=== PATIENT | female | born 1935 | race Caucasian/White ===

== ENCOUNTER 2017-10-11 11:42 | Emergency (ER) | payer MEDICARE ==
[2017-10-11] MEDS ORDERED: fentaNYL (PF) 50 MCG/ML 2 ML AMP IVP ONE (12:07)
--- NOTE | 2017-10-11 12:26 | ED ---
Fall HPI - General Chief Complaint: Fall Stated Complaint: Fall Time Seen by Provider: 10/11/17 11:52 Source: EMS Mode of arrival: EMS - History of Present Illness Initial Comments: Patient is an 82-year-old female who presents with a chief complaint of a fall. The patient states that she was at her home, with an aide, trying to get out of her wheelchair and she fell forward. Patient states that she remembers the entire event did not lose consciousness. The patient states that she landed on her right hand, and face. Currently, the patient is complaining of a headache, dizziness, and right wrist pain. There are no aggravating or alleviating factors. The patient currently does take warfarin. - Related Data Home Medications Medication Instructions Recorded Confirmed Acetaminophen [Tylenol] 650 mg PO Q4H PRN 10/16/15 10/16/15 Budesonide [Pulmicort] 2 ml INHALATION RT-BID 10/16/15 10/16/15 Clobetasol Propionate [Temovate] 1 applic TOPICAL BID PRN 10/16/15 10/16/15 DULoxetine HCL [Cymbalta] 20 mg PO DAILY 10/16/15 10/16/15 Furosemide [Lasix] 40 mg PO BID 10/16/15 10/16/15 Glucerna Shake 1 can PO TID 10/16/15 10/16/15 INSULIN LISPRO (humaLOG) [humaLOG] See Protocol SQ AC-TID PRN 10/16/15 10/16/15 Ipratropium-Albuterol Nebulize 3 ml INHALATION RT-Q6H 10/16/15 10/16/15 [Duoneb 0.5 mg-3 mg/3 ml Soln] Metoprolol Succinate (ER) [Toprol 50 mg PO DAILY 10/16/15 10/16/15 Xl] Nitroglycerin Sl Tabs [Nitrostat] 0.4 mg SUBLINGUAL Q5M PRN 10/16/15 10/16/15 Omeprazole [Omeprazole] 20 mg PO DAILY 10/16/15 10/16/15 Ondansetron [Zofran] 4 mg PO Q8HR PRN 10/16/15 10/16/15 Potassium Chloride [K-Tab ER] 20 meq PO DAILY 10/16/15 10/16/15 Sevelamer [Renvela] 800 mg PO AC-TID 10/16/15 10/16/15 Warfarin [Coumadin] 1 mg PO SUTUTHSA 10/16/15 10/16/15 Warfarin [Coumadin] 2 mg PO MOWEFR 10/16/15 10/16/15 amLODIPine BESYLATE [Norvasc] 10 mg PO DAILY 10/16/15 10/16/15 hydrALAZINE HCL [Apresoline] 100 mg PO TID 10/16/15 10/16/15 Previous Rx's Medication Instructions Recorded Isosorbide Mononitrate ER [Imdur] 30 mg PO DAILY tab.er.24h 07/12/15 Allergies Allergy/AdvReac Type Severity Reaction Status Date / Time codeine Allergy Rash/Hives Verified 10/16/15 11:01 metoprolol Allergy Unknown Verified 10/16/15 11:12 Penicillins Allergy Anaphylaxis Verified 10/16/15 11:01 Tetanus Vaccines and Toxoid Allergy Rash/Hives Verified 10/16/15 11:01 [Tetanus Vaccines & Toxoid] Review of Systems ROS Statement: Those systems with pertinent positive or pertinent negative responses have been documented in the HPI. ROS Other: All systems not noted in ROS Statement are negative. Neurological: Reports: headache Past Medical History Past Medical History: COPD, Diabetes Mellitus, Hyperlipidemia, Hypertension, Osteoarthritis (OA), Renal Disease, Vascular Disorder Additional Past Medical History / Comment(s): mon/sat/sat hemodialysis History of Any Multi-Drug Resistant Organisms: ESBL Date of last positivie culture/infection: 10/31/16 MDRO Source:: ESBL URINE E.COLI Past Surgical History: No Surgical Hx Reported Additional Past Surgical History / Comment(s): Ovine cyst removal cataracts carpal tunnel surgery left side. left AV fistula Past Anesthesia/Blood Transfusion Reactions: No Reported Reaction Past Psychological History: No Psychological Hx Reported Smoking Status: Former smoker Past Alcohol Use History: None Reported Past Drug Use History: None Reported General Exam Limitations: altered mental status General appearance: alert, in no apparent distress Head exam: Present: normocephalic, other (Patient has a contusion above the right eye, and a small abrasion above the right eye.) Eye exam: Present: normal appearance, PERRL, EOMI ENT exam: Present: normal exam, mucous membranes moist Neck exam: Absent: tenderness Respiratory exam: Present: normal lung sounds bilaterally. Absent: respiratory distress, wheezes, rales Cardiovascular Exam: Present: regular rate, normal rhythm, other (Patient has a dialysis catheter on her anterior right chest) GI/Abdominal exam: Present: soft. Absent: distended, tenderness Rectal exam: Present: deferred Extremities exam: Present: tenderness, joint swelling, other (Patient has swelling of the right ulnar wrist) Neurological exam: Present: alert, oriented X3 Psychiatric exam: Present: normal affect, normal mood Skin exam: Present: warm, dry, intact Course Vital Signs 10/11/17 10/11/17 11:45 14:29 Temperature 97.6 F Pulse Rate 76 69 Respiratory 18 20 Rate Blood Pressure 187/79 O2 Sat by Pulse 96 92 L Oximetry Medical Decision Making - Medical Decision Making Patient is an 82-year-old female who presents with a chief complaint of fall. On initial evaluation, vital signs are stable, patient is in no acute distress. She presents in a c-collar. Patient states that she hit her head, she has an abrasion and a contusion over the right eye. Patient admits to taking warfarin. She will be examining the CT head and neck, x-rays of the chest and pelvis, and an x-ray of the right hand and wrist. We'll be evaluated with labs and a PT/INR. Given patient's symptoms, she will likely be a candidate for observation of CT head is negative. 2:33 PM Patient's daughter now currently in the emergency department. Patient's daughter offers a very different history. She states that the patient was brought back to her living facility after dialysis, we'll to a room, and she had what is described as a syncopal episode, and fell forward. After the fall, the patient's daughter describes an episode of rhythmic shaking and foaming at the mouth that lasted 2 minutes. The patient does not otherwise have a diagnosed history of seizure disorder. W evaluation was brought and to include a syncopal workup. Initial CT of the head and neck not show any acute fractures or intracranial bleeding. I discussed the results with the patient and her family thus far, and given the further history provided by the patient' s daughter the patient will require transfer to a facility that has neurosurgery in-house. Though reluctant, the patient and family are agreeable after long discussion of the risks and benefits. 2:39 PM This case was discussed with Dr. Ba at [facility] who accepts transfer of this patient for consult neurosurgery. - Lab Data Result diagrams: 10/11/17 13:05 10/11/17 13:05 Lab Results 10/11/17 10/11/17 10/11/17 Range/Units 13:05 13:05 13:05 WBC 7.8 (3.8-10.6) k/uL RBC 4.29 (3.80-5.40) m/uL Hgb 12.6 (11.4-16.0) gm/dL Hct 37.8 (34.0-46.0) % MCV 88.2 (80.0-100.0) fL MCH 29.4 (25.0-35.0) pg MCHC 33.4 (31.0-37.0) g/dL RDW 14.7 (11.5-15.5) % Plt Count 264 (150-450) k/uL Neutrophils % 81 % Lymphocytes % 11 % Monocytes % 5 % Eosinophils % 2 % Basophils % 1 % Neutrophils # 6.3 (1.3-7.7) k/uL Lymphocytes # 0.9 L (1.0-4.8) k/uL Monocytes # 0.4 (0-1.0) k/uL Eosinophils # 0.2 (0-0.7) k/uL Basophils # 0.1 (0-0.2) k/uL PT 21.2 H (9.0-12.0) sec INR 2.4 H (<1.2) Sodium 137 (137-145) mmol/L Potassium 4.3 (3.5-5.1) mmol/L Chloride 94 L (98-107) mmol/L Carbon Dioxide 32 H (22-30) mmol/L Anion Gap 11 mmol/L BUN 15 (7-17) mg/dL Creatinine 2.36 H (0.52-1.04) mg/dL Est GFR (CKD-EPI)AfAm 21 (>60 ml/min/1.73 sqM) Est GFR (CKD-EPI)NonAf 19 (>60 ml/min/1.73 sqM) Glucose 144 H (74-99) mg/dL Calcium 9.3 (8.4-10.2) mg/dL CK-MB (CK-2) (0.0-2.4) ng/mL Troponin I (0.000-0.034) ng/mL NT-Pro-B Natriuret Pep pg/mL 10/11/17 10/11/17 Range/Units 13:05 13:05 WBC (3.8-10.6) k/uL RBC (3.80-5.40) m/uL Hgb (11.4-16.0) gm/dL Hct (34.0-46.0) % MCV (80.0-100.0) fL MCH (25.0-35.0) pg MCHC (31.0-37.0) g/dL RDW (11.5-15.5) % Plt Count (150-450) k/uL Neutrophils % % Lymphocytes % % Monocytes % % Eosinophils % % Basophils % % Neutrophils # (1.3-7.7) k/uL Lymphocytes # (1.0-4.8) k/uL Monocytes # (0-1.0) k/uL Eosinophils # (0-0.7) k/uL Basophils # (0-0.2) k/uL PT (9.0-12.0) sec INR (<1.2) Sodium (137-145) mmol/L Potassium (3.5-5.1) mmol/L Chloride (98-107) mmol/L Carbon Dioxide (22-30) mmol/L Anion Gap mmol/L BUN (7-17) mg/dL Creatinine (0.52-1.04) mg/dL Est GFR (CKD-EPI)AfAm (>60 ml/min/1.73 sqM) Est GFR (CKD-EPI)NonAf (>60 ml/min/1.73 sqM) Glucose (74-99) mg/dL Calcium (8.4-10.2) mg/dL CK-MB (CK-2) <0.2 (0.0-2.4) ng/mL Troponin I <0.012 (0.000-0.034) ng/mL NT-Pro-B Natriuret Pep 59837 pg/mL Disposition Clinical Impression: Syncope, Fall, Seizure Disposition: OTHER INSTITUTION NOT DEFINED Condition: Fair Referrals: None,Stated [REFERRING] - 1-2 days - Out of Hospital Transfer - Req. Specs Out of Hospital Transfer - Requested Specifics: Other Emergency Center
--- NOTE | 2017-10-11 13:34 | CT ---
EXAMINATION TYPE: CT facial bones wo con DATE OF EXAM: 10/11/2017 COMPARISON: NONE HISTORY: Fall today with Right sided supra-orbital injury CT DLP: 612 mGycm Automated exposure control for dose reduction was used. TECHNIQUE: CT scan of the sinuses is performed without contrast, axial images are obtained, coronal r eformatted images are also reviewed. FINDINGS: Katy bullosa noted bilaterally The large soft tissue hematoma overlying the right frontal bone and superior margin of the orbit. Osseous structures are intact. Intraorbital structures are intact. Visualized oropharynx and nasopharynx symmetric. Parotid glands have a normal appearance. There is facet arthropathy and degenerative disc disease of the visualized cervical spine. Nasal sept al deviation noted. IMPRESSION: Slight 1. Soft tissue tissue hematoma overlying the right frontal bone.
[2017-10-11 13:35] LABS: INR 2.4 (<1.2); Prothrombin Time 21.2 sec (9.0-12.0)
--- NOTE | 2017-10-11 13:42 | CT ---
EXAMINATION TYPE: CT brain heather [place] DATE OF EXAM: 10/11/2017 COMPARISON: NONE HISTORY: Fall today with Right sided supra-orbital injury CT DLP: 1567.1 mGycm Automated exposure control for dose reduction was used. TECHNIQUE: CT scan of the head and cervical spine are performed without contrast. FINDINGS: There is soft tissue hematoma overlying the right frontal bone moderate generalized degen erative change. Periventricular low attenuation compatible with remote microvascular ischemia. No mid line shift or mass effect. Calvarium intact. Intracranial atherosclerotic changes noted. Assessment spinal cord and spinal canal limited due to noncontrast technique and reduced resolution. At C3-C4 there is facet arthropathy. Uncovertebral joint hypertrophy noted with central disc bulging. At C4-C5 there is facet arthropathy much greater on the left uncovertebral joint hypertrophy noted. At C5-6 and C6-C7 there severe degenerative disc disease with posterior spondylosis. There is uncover tebral joint hypertrophy and facet arthropathy. Canal stenosis and severe bilateral foraminal encroac hment suspected. Recommend follow-up MRI. There is a 1 cm thyroid nodule on the right. Emphysematous changes and apical pleural thickening is n oted bilaterally. IMPRESSION: 1. There is no acute fracture or dislocation evident in the cervical spine. 2. No acute intracranial hemorrhage, mass effect, or midline shift is seen. 3 degenerative and nonspe cific white matter changes most typical remote microvascular ischemia 3. Right-sided thyroid nodule
[2017-10-11 13:44] LABS: Calcium 9.3 mg/dL (8.4-10.2); Potassium 4.3 mmol/L (3.5-5.1)
[2017-10-11 13:49] LABS: Basophils # (A) 0.1 k/uL (0-0.2); Basophils % (A) 1 %; Eosinophils # (A) 0.2 k/uL (0-0.7); Eosinophils % (A) 2 %; HCT 37.8 % (34.0-46.0); HGB 12.6 gm/dL (11.4-16.0); Lymphocytes # (A) 0.9 k/uL (1.0-4.8); Lymphocytes % (A) 11 %; MCH 29.4 pg (25.0-35.0); MCHC 33.4 g/dL (31.0-37.0); MCV 88.2 fL (80.0-100.0); Mean Platelet Volume 7.7; Monocytes # (A) 0.4 k/uL (0-1.0); Monocytes % (A) 5 %; Neutrophils # (A) 6.3 k/uL (1.3-7.7); Neutrophils % (A) 81 %; Platelet Count 264 k/uL (150-450); RBC 4.29 m/uL (3.80-5.40); RDW 14.7 % (11.5-15.5); WBC 7.8 k/uL (3.8-10.6)
[2017-10-11 14:12] LABS: Creatine Kinase MB <0.2 ng/mL (0.0-2.4); Troponin I <0.012 ng/mL (0.000-0.034)
--- NOTE | 2017-10-11 14:57 | XR ---
Right wrist HISTORY: Right-sided pain, fall 4 views of the right wrist correlated to right hand same date Bone mineralization is reduced which may limit sensitivity. Arthropathy is noted with remodeling of t he radiocarpal joint, hypertrophic change of the carpometacarpal joint of the first digit and scaphoi d trapezium joint with subchondral sclerosis. Alignment is maintained. Soft tissue swelling is suspec joe. Probable vascular calcifications noted incidentally. IMPRESSION: No acute fracture or dislocation evident, follow-up as indicated.
--- NOTE | 2017-10-11 14:58 | XR ---
EXAMINATION TYPE: XR hand complete RT DATE OF EXAM: 10/11/2017 CLINICAL HISTORY: Right-sided hand and wrist pain after a fall TECHNIQUE: Frontal, lateral and oblique images of the right hand and wrist are obtained. Scaphoid vi ew was also obtained. COMPARISON: None. FINDINGS: There is subtle probable fracture deformity of the mid pole of the scaphoid, which appears acute but overall is age indeterminate due to underlying osseous demineralization. Degenerative barcenas es of the distal interphalangeal joints, lesser degree proximal interphalangeal joints, and first car pal metacarpal joint are noted distribution of osteoarthritis. No carpocarpal joint space widening. N o additional acute fracture is seen. The overlying soft tissue appears unremarkable. The rest maintai ns normal alignment. IMPRESSION: Probable fracture deformity of the mid pole of the scaphoid appearing acute although not reproduced on the scaphoid view. Correlate with point tenderness. Clinically if this is equivocal nuc lear medicine bone scan or MR to evaluate for bone marrow edema could be performed.
--- NOTE | 2017-10-11 14:59 | XR ---
EXAMINATION TYPE: XR chest 1V DATE OF EXAM: 10/11/2017 COMPARISON: 10/16/2015 HISTORY: Right-sided chest pain after a fall. TECHNIQUE: Single frontal view of the chest is obtained. FINDINGS: There is mild diffuse pulmonary vascular congestion and cephalization with right-sided ba l lumen hemodialysis catheter terminating in the right atrium. No sizable pneumothorax. Trace pleural effusions blunt the costophrenic angles. No displaced fracture is identified. There is diffuse osseo us demineralization. IMPRESSION: Mild diffuse interstitial edema and pulmonary vascular congestion likely secondary to no ncardiogenic fluid overload in this patient with a dual lumen hemodialysis catheter.
--- NOTE | 2017-10-11 15:00 | XR ---
EXAMINATION TYPE: XR pelvis AP view DATE OF EXAM: 10/11/2017 CLINICAL HISTORY: Right-sided pain after a fall TECHNIQUE: A single AP view of the pelvis is obtained. COMPARISON: None. FINDINGS: There is no acute fracture/dislocation evident in the pelvis. Mild femoral acetabular arth ropathy is seen bilaterally with mild sacroiliac joint sclerosis. Atherosclerosis is seen of the comm on iliac arteries and their branches, moderate in degree. The overlying soft tissue appears unremark able. IMPRESSION: There is no acute fracture or dislocation in the pelvis.
[2017-10-11] MEDS ORDERED: hydrALAZINE HCL 25 MG TAB PO STA ×2 (15:21→15:22)
[2017-10-11] MEDS ORDERED: LISINOPRIL 10 MG TAB PO STA ×2 (15:21→15:22)
[2017-10-11 15:25] VITALS: BP 206/79; PULSE 70; RESP 18; TEMP 97.5
== END 2017-10-11 16:06 | disposition other institution (70) ==
LOC: EC 11:42
DX: S00.11XA Contusion of right eyelid and periocular area, initial encounter (principal); M25.431 Effusion, right wrist; R56.9 Unspecified convulsions; R55 Syncope and collapse; R42 Dizziness and giddiness; J44.9 Chronic obstructive pulmonary disease, unspecified; E78.5 Hyperlipidemia, unspecified; E11.22 Type 2 diabetes mellitus with diabetic chronic kidney disease; Z99.2 Dependence on renal dialysis; I10 Essential (primary) hypertension; M19.90 Unspecified osteoarthritis, unspecified site; Z87.891 Personal history of nicotine dependence; Z79.01 Long term (current) use of anticoagulants; Z79.4 Long term (current) use of insulin; Z79.51 Long term (current) use of inhaled steroids; Z79.899 Other long term (current) drug therapy; Z88.0 Allergy status to penicillin; Z88.5 Allergy status to narcotic agent; Z88.7 Allergy status to serum and vaccine; Z88.8 Allergy status to other drugs, medicaments and biological substances; W05.0XXA Fall from non-moving wheelchair, initial encounter; Y92.009 Unspecified place in unspecified non-institutional (private) residence as the place of occurrence of the external cause
CPT/HCPCS: 36415; 93005; 83880; 80048; 82553; 84484; 85025; 85610; 72170; 73110; 73130; 71045; 72125; 70486; 70450; 99285; 96374; J3010

== ENCOUNTER 2017-12-01 08:55 | Inpatient (IN) | payer MEDICARE ==
--- NOTE | 2017-12-01 09:05 | ED ---
SOB HPI - General Stated Complaint: hemoptysis Time Seen by Provider: 12/01/17 08:55 Source: patient, EMS, RN notes reviewed, old records reviewed Mode of arrival: EMS - History of Present Illness Initial Comments: This 82-year-old female with a history of renal failure who is on dialysis Saturday who did have dialysis 2 days ago who apparently has been coughing all night and coughing up dark colored blood throughout the night. She was transported here by EMS for evaluation she is reported have a low pulse ox. Markedly diminished breath sounds per paramedics. The patient did receive a nebulizer treatment in route. Patient states it did help her breathing somewhat. She also complains some right-sided flank pain no fevers reported no per paramedics she did feel warm. No other complaints or modifying factors at this time. Patient is on Coumadin for an unknown reason. MD Complaint: shortness of breath, cough - Related Data Home Medications Medication Instructions Recorded Confirmed Acetaminophen [Tylenol] 650 mg PO Q4H PRN 10/16/15 12/01/17 Budesonide [Pulmicort] 2 ml INHALATION RT-BID 10/16/15 12/01/17 Clobetasol Propionate [Temovate] 1 applic TOPICAL BID PRN 10/16/15 12/01/17 DULoxetine HCL [Cymbalta] 20 mg PO DAILY 10/16/15 12/01/17 Furosemide [Lasix] 40 mg PO BID 10/16/15 12/01/17 Glucerna Shake 1 can PO TID 10/16/15 12/01/17 INSULIN LISPRO (humaLOG) [humaLOG] See Protocol SQ AC-TID PRN 10/16/15 12/01/17 Ipratropium-Albuterol Nebulize 3 ml INHALATION RT-Q6H 10/16/15 12/01/17 [Duoneb 0.5 mg-3 mg/3 ml Soln] Metoprolol Succinate (ER) [Toprol 50 mg PO DAILY 10/16/15 12/01/17 Xl] Nitroglycerin Sl Tabs [Nitrostat] 0.4 mg SUBLINGUAL Q5M PRN 10/16/15 12/01/17 Omeprazole [Omeprazole] 20 mg PO DAILY 10/16/15 12/01/17 Ondansetron [Zofran] 4 mg PO Q8HR PRN 10/16/15 12/01/17 Potassium Chloride [K-Tab ER] 20 meq PO DAILY 10/16/15 12/01/17 Sevelamer [Renvela] 800 mg PO AC-TID 10/16/15 12/01/17 Warfarin [Coumadin] 1 mg PO SUTUTHSA 10/16/15 12/01/17 Warfarin [Coumadin] 2 mg PO MOWEFR 10/16/15 12/01/17 amLODIPine BESYLATE [Norvasc] 10 mg PO DAILY 10/16/15 12/01/17 hydrALAZINE HCL [Apresoline] 100 mg PO TID 10/16/15 12/01/17 Previous Rx's Medication Instructions Recorded Isosorbide Mononitrate ER [Imdur] 30 mg PO DAILY tab.er.24h 07/12/15 Allergies Allergy/AdvReac Type Severity Reaction Status Date / Time codeine Allergy Rash/Hives Verified 10/16/15 11:01 metoprolol Allergy Unknown Verified 10/16/15 11:12 Penicillins Allergy Anaphylaxis Verified 10/16/15 11:01 Tetanus Vaccines and Toxoid Allergy Rash/Hives Verified 10/16/15 11:01 [Tetanus Vaccines & Toxoid] Review of Systems ROS Statement: Those systems with pertinent positive or pertinent negative responses have been documented in the HPI. ROS Other: All systems not noted in ROS Statement are negative. Past Medical History Past Medical History: COPD, Diabetes Mellitus, Hyperlipidemia, Hypertension, Osteoarthritis (OA), Renal Disease, Vascular Disorder Additional Past Medical History / Comment(s): sat/sat/sat hemodialysis History of Any Multi-Drug Resistant Organisms: ESBL Date of last positivie culture/infection: 10/31/16 MDRO Source:: ESBL URINE E.COLI Past Surgical History: No Surgical Hx Reported Additional Past Surgical History / Comment(s): Ovine cyst removal cataracts carpal tunnel surgery left side. left AV fistula Past Anesthesia/Blood Transfusion Reactions: No Reported Reaction Past Psychological History: No Psychological Hx Reported Smoking Status: Former smoker Past Alcohol Use History: None Reported Past Drug Use History: None Reported General Exam - General Exam Comments Initial Comments: This is a well-developed well-nourished awake alert oriented 3 female General appearance: alert, anxious Head exam: Present: atraumatic, normocephalic, normal inspection Eye exam: Present: normal appearance, PERRL, EOMI. Absent: scleral icterus, conjunctival injection, periorbital swelling ENT exam: Present: normal exam, mucous membranes moist Neck exam: Present: normal inspection. Absent: tenderness, meningismus, lymphadenopathy Respiratory exam: Present: rales, accessory muscle use, decreased breath sounds Cardiovascular Exam: Present: tachycardia GI/Abdominal exam: Present: soft, normal bowel sounds. Absent: distended, tenderness, guarding, rebound, rigid Extremities exam: Present: normal inspection, full ROM, normal capillary refill , other (Right arm fistula appears be functional). Absent: tenderness, pedal edema, joint swelling, calf tenderness Back exam: Present: normal inspection Neurological exam: Present: alert, oriented X3, CN II-XII intact Psychiatric exam: Present: normal affect, normal mood Skin exam: Present: warm, dry, intact, normal color. Absent: rash Course Vital Signs 12/01/17 12/01/17 12/01/17 09:00 11:13 12:07 Temperature 97.9 F Pulse Rate 76 78 76 Respiratory 26 H 16 20 Rate Blood Pressure 179/73 161/64 O2 Sat by Pulse 99 93 L 100 Oximetry - Reevaluation(s) Reevaluation #1: 12/01/17 13:02 Reexamination the patient earlier revealed no change in her status. Medical Decision Making - Lab Data Result diagrams: 12/01/17 09:15 12/01/17 09:15 Lab Results 12/01/17 12/01/17 12/01/17 Range/Units 09:15 09:15 09:15 WBC (3.8-10.6) k/uL RBC (3.80-5.40) m/uL Hgb (11.4-16.0) gm/dL Hct (34.0-46.0) % MCV (80.0-100.0) fL MCH (25.0-35.0) pg MCHC (31.0-37.0) g/dL RDW (11.5-15.5) % Plt Count (150-450) k/uL Neutrophils % % Lymphocytes % % Monocytes % % Eosinophils % % Basophils % % Neutrophils # (1.3-7.7) k/uL Lymphocytes # (1.0-4.8) k/uL Monocytes # (0-1.0) k/uL Eosinophils # (0-0.7) k/uL Basophils # (0-0.2) k/uL Hypochromasia Poikilocytosis PT 26.9 H (9.0-12.0) sec INR 3.0 H (<1.2) APTT 37.1 H (22.0-30.0) sec Sodium (137-145) mmol/L Potassium (3.5-5.1) mmol/L Chloride (98-107) mmol/L Carbon Dioxide (22-30) mmol/L Anion Gap mmol/L BUN (7-17) mg/dL Creatinine (0.52-1.04) mg/dL Est GFR (CKD-EPI)AfAm (>60 ml/min/1.73 sqM) Est GFR (CKD-EPI)NonAf (>60 ml/min/1.73 sqM) Glucose (74-99) mg/dL Calcium (8.4-10.2) mg/dL Magnesium (1.6-2.3) mg/dL Total Bilirubin (0.2-1.3) mg/dL AST (14-36) U/L ALT (9-52) U/L Alkaline Phosphatase (38-126) U/L Total Creatine Kinase 32 (30-135) U/L CK-MB (CK-2) 0.5 (0.0-2.4) ng/mL CK-MB (CK-2) Rel Index 1.6 NT-Pro-B Natriuret Pep 53426 pg/mL Total Protein (6.3-8.2) g/dL Albumin (3.5-5.0) g/dL 12/01/17 12/01/17 Range/Units 09:15 09:15 WBC 9.0 (3.8-10.6) k/uL RBC 2.86 L (3.80-5.40) m/uL Hgb 8.0 L (11.4-16.0) gm/dL Hct 24.7 L (34.0-46.0) % MCV 86.4 (80.0-100.0) fL MCH 27.9 (25.0-35.0) pg MCHC 32.3 (31.0-37.0) g/dL RDW 15.1 (11.5-15.5) % Plt Count 321 (150-450) k/uL Neutrophils % 75 % Lymphocytes % 16 % Monocytes % 5 % Eosinophils % 3 % Basophils % 0 % Neutrophils # 6.7 (1.3-7.7) k/uL Lymphocytes # 1.5 (1.0-4.8) k/uL Monocytes # 0.4 (0-1.0) k/uL Eosinophils # 0.3 (0-0.7) k/uL Basophils # 0.0 (0-0.2) k/uL Hypochromasia Slight Poikilocytosis Slight PT (9.0-12.0) sec INR (<1.2) APTT (22.0-30.0) sec Sodium 143 (137-145) mmol/L Potassium 4.1 (3.5-5.1) mmol/L Chloride 101 (98-107) mmol/L Carbon Dioxide 28 (22-30) mmol/L Anion Gap 14 mmol/L BUN 30 H (7-17) mg/dL Creatinine 5.62 H* (0.52-1.04) mg/dL Est GFR (CKD-EPI)AfAm 7 (>60 ml/min/1.73 sqM) Est GFR (CKD-EPI)NonAf 6 (>60 ml/min/1.73 sqM) Glucose 109 H (74-99) mg/dL Calcium 8.2 L (8.4-10.2) mg/dL Magnesium 2.2 (1.6-2.3) mg/dL Total Bilirubin 0.3 (0.2-1.3) mg/dL AST 10 L (14-36) U/L ALT 14 (9-52) U/L Alkaline Phosphatase 88 (38-126) U/L Total Creatine Kinase (30-135) U/L CK-MB (CK-2) (0.0-2.4) ng/mL CK-MB (CK-2) Rel Index NT-Pro-B Natriuret Pep pg/mL Total Protein 5.4 L (6.3-8.2) g/dL Albumin 2.9 L (3.5-5.0) g/dL - EKG Data -: EKG Interpreted by De EKG shows normal: sinus rhythm (Sinus rhythm rate of 80 MN interval 1:30 QRS duration 118 QT since QTC 462/532 a bundle-branch block pattern no acute ST-T wave changes.) - Radiology Data Radiology results: report reviewed (I did review the imaging and report evidence of CHF.), image reviewed Critical Care Time Critical Care Time: Yes Critical Care Time: 31 minutes of critical care time which includes initial presentation with history physical labs x-rays also discussed with paramedics and monitoring the EMS run. Discussion with family members regarding findings discussed with the patient discussed with the admitting physician admission orders and documentation the above also contacting the consumer insights specialist. Disposition Clinical Impression: Congestive heart failure (CHF), Chronic renal failure syndrome Disposition: ADMITTED IP TO THIS [facility] Condition: Stable Referrals: Merritt Treviño DO [Primary Care Provider] - 1-2 days
[2017-12-01 09:24] LABS: Basophils % (A) 0 %; Eosinophils # (A) 0.3 k/uL (0-0.7); Eosinophils % (A) 3 %; HCT 24.7 % (34.0-46.0); Hypochromasia Slight; Lymphocytes # (A) 1.5 k/uL (1.0-4.8); Lymphocytes % (A) 16 %; MCH 27.9 pg (25.0-35.0); MCHC 32.3 g/dL (31.0-37.0); MCV 86.4 fL (80.0-100.0); Mean Platelet Volume 8.4; Monocytes # (A) 0.4 k/uL (0-1.0); Monocytes % (A) 5 %; Neutrophils # (A) 6.7 k/uL (1.3-7.7); Neutrophils % (A) 75 %; Platelet Count 321 k/uL (150-450); Poikilocytosis Slight; RBC 2.86 m/uL (3.80-5.40); RDW 15.1 % (11.5-15.5)
[2017-12-01 09:32] LABS: Partial Thromboplastin Time 37.1 sec (22.0-30.0); Prothrombin Time 26.9 sec (9.0-12.0)
[2017-12-01 09:33] LABS: Albumin 2.9 g/dL (3.5-5.0); Calcium 8.2 mg/dL (8.4-10.2); Magnesium 2.2 mg/dL (1.6-2.3); Potassium 4.1 mmol/L (3.5-5.1); Total Bilirubin 0.3 mg/dL (0.2-1.3); Total Protein 5.4 g/dL (6.3-8.2)
[2017-12-01 09:53] LABS: Creatine Kinase MB 0.5 ng/mL (0.0-2.4)
--- NOTE | 2017-12-01 10:10 | XR ---
EXAMINATION TYPE: XR chest 2V DATE OF EXAM: 12/01/2017 HISTORY: cough. REFERENCE: Previous study dated 10/11/2017. FINDINGS: There is a large-bore, double-lumen catheter in place via a right internal jugular approach . Its tip is in the right atrium. Heart size upper limits of normal. There is vascular congestion and pulmonary edema. There are small, bilateral effusions. IMPRESSION: WORSENING CHANGES OF CONGESTIVE HEART FAILURE.
[2017-12-01] MEDS ORDERED: ONDANSETRON 4 MG TAB PO PRN (13:13)
[2017-12-01] MEDS ORDERED: NITROGLYCERIN SL TABS 0.4 MG TAB SUBLINGUAL PRN (13:13)
[2017-12-01] MEDS ORDERED: CLOBETASOL PROP 0.05% CR 15GM TOPICAL PRN (13:13)
[2017-12-01] MEDS ORDERED: ACETAMINOPHEN TAB 325 MG TAB PO PRN (13:13)
[2017-12-01] MEDS ORDERED: FUROSEMIDE 10 MG/ML 4 ML VIAL IV STA (13:16)
[2017-12-01] MEDS: IPRATROPIUM-ALBUTEROL 3 ML NEB INHALATION SCH ×2 (13:29→20:11)
[2017-12-01] MEDS ORDERED: NON-FORMULARY DRUG (Glucerna Shake 1 CAN) PO SCH (16:00)
[2017-12-01] MEDS ORDERED: hydrALAZINE HCL 50 MG TAB PO SCH (16:00)
[2017-12-01 17:02] LABS: Glucose,Whole Blood 123 mg/dL (75-99)
[2017-12-01] MEDS: SEVELAMER 800 MG TAB PO SCH (17:42)
[2017-12-01] MEDS ORDERED: WARFARIN 1 MG TAB PO SCH (18:00)
--- NOTE | 2017-12-01 18:25 | P.HPIM ---
History of Present Illness 82-year-old female with a history of renal failure who is on dialysis Saturday who did have dialysis 2 days ago who apparently has been coughing all night and coughing up dark colored blood throughout the night. She was transported here by EMS for evaluation she is reported have a low pulse ox. Markedly diminished breath sounds per paramedics. The patient did receive a nebulizer treatment in route. Patient states it did help her breathing somewhat. She also complains some right-sided flank pain no fevers reported no per paramedics she did feel warm. No other complaints or modifying factors at this time. Patient is on Coumadin for an unknown reason. Patient's INR is 3 and patient denied any symptoms of fever chills nausea vomiting patient does have some shortness of breath does use 2 L of oxygen at the alf. Patient does have a pulmonary edema on the chest x-ray. Patient does urinate. Patient was started on IV Lasix nephrology was consulted. We'll hold off Coumadin today and aspirin today can be resumed tomorrow. Patient is on Coumadin for atrial fibrillation. Patient appears to have some chronic diastolic dysfunction as well along with the renal dysfunction leading to pulmonary edema area patient is normally to person assist at alf Review of Systems REVIEW OF SYSTEMS: CONSTITUTIONAL: No fever, no malaise, no fatigue. HEENT: No recent visual problems or hearing problems. Denied any sore throat. CARDIOVASCULAR: No chest pain, orthopnea, PND, no palpitations, no syncope. PULMONARY: As mentioned in HPI GASTROINTESTINAL: No diarrhea, no nausea, no vomiting, no abdominal pain. Normoactive bowel sounds. NEUROLOGICAL: No headaches, no weakness, no numbness. HEMATOLOGICAL: Denies any bleeding or petechiae. GENITOURINARY: Denies any burning micturition, frequency, or urgency. MUSCULOSKELETAL/RHEUMATOLOGICAL: Denies any joint pain, swelling, or any muscle pain. ENDOCRINE: Denies any polyuria or polydipsia. The rest of the 14-point review of systems is negative. Past Medical History Past Medical History: COPD, Diabetes Mellitus, Hyperlipidemia, Hypertension, Osteoarthritis (OA), Renal Disease, Vascular Disorder Additional Past Medical History / Comment(s): sat/sat/sat hemodialysis History of Any Multi-Drug Resistant Organisms: ESBL Date of last positivie culture/infection: 11/15/17 MDRO Source:: ESBL URINE E.COLI Past Surgical History: No Surgical Hx Reported Additional Past Surgical History / Comment(s): Ovine cyst removal cataracts carpal tunnel surgery left side. left AV fistula Past Anesthesia/Blood Transfusion Reactions: No Reported Reaction Past Psychological History: No Psychological Hx Reported Smoking Status: Former smoker Past Alcohol Use History: None Reported Past Drug Use History: None Reported - Past Family History Sister(s) Family Medical History: Diabetes Mellitus, Hyperlipidemia, Hypertension Daughter(s) Family Medical History: Asthma, COPD Additional Family Medical History / Comment(s): Lupus Medications and Allergies Home Medications Medication Instructions Recorded Confirmed Type Acetaminophen [Tylenol] 650 mg PO Q6H PRN 10/16/15 12/01/17 History INSULIN LISPRO (humaLOG) [humaLOG] See Protocol SQ HS PRN 10/16/15 12/01/17 History Ipratropium-Albuterol Nebulize 3 ml INHALATION RT-Q6H 10/16/15 12/01/17 History [Duoneb 0.5 mg-3 mg/3 ml Soln] Nitroglycerin Sl Tabs [Nitrostat] 0.4 mg SUBLINGUAL Q5M PRN 10/16/15 12/01/17 History Omeprazole [Omeprazole] 20 mg PO DAILY 10/16/15 12/01/17 History Ondansetron [Zofran] 4 mg PO Q8HR PRN 10/16/15 12/01/17 History Sevelamer [Renvela] 800 mg PO AC-TID 10/16/15 12/01/17 History Aspirin 81 mg PO DAILY 12/01/17 12/01/17 History Atorvastatin [Lipitor] 20 mg PO HS 12/01/17 12/01/17 History Budesonide [Pulmicort Flexhaler] 2 puff INHALATION RT-BID 12/01/17 12/01/17 History Ferrous Sulfate [Feosol] 325 mg PO DAILY 12/01/17 12/01/17 History INSULIN LISPRO (humaLOG) [humaLOG] See Protocol SQ AC-TID PRN 12/01/17 12/01/17 History Lisinopril [Zestril] 20 mg PO DAILY 12/01/17 12/01/17 History Loratadine [Claritin] 10 mg PO DAILY 12/01/17 12/01/17 History Sertraline [Zoloft] 25 mg PO DAILY 12/01/17 12/01/17 History Warfarin Sodium [Coumadin] 4 mg PO WETH 12/01/17 12/01/17 History Warfarin [Coumadin] 2.5 mg PO SUMOTUFRSA 12/01/17 12/01/17 History hydrALAZINE HCL [Apresoline] 25 mg PO Q8HR 12/01/17 12/01/17 History levETIRAcetam 1,000 mg PO Q12HR 12/01/17 12/01/17 History levETIRAcetam [Keppra] 500 mg PO MOWEFR 12/01/17 12/01/17 History Allergies Allergy/AdvReac Type Severity Reaction Status Date / Time codeine Allergy Rash/Hives Verified 10/16/15 11:01 metoprolol Allergy Unknown Verified 10/16/15 11:12 Penicillins Allergy Anaphylaxis Verified 10/16/15 11:01 pneumococcal vaccine Allergy Unknown Verified 12/01/17 14:01 Tetanus Vaccines and Toxoid Allergy Rash/Hives Verified 10/16/15 11:01 [Tetanus Vaccines & Toxoid] Physical Exam Vitals: Vital Signs Temp Pulse Pulse Resp BP BP Pulse Ox 12/01/17 14:11 97.2 F L 75 18 189/74 98 12/01/17 14:00 98.1 F 88 17 164/72 97 12/01/17 13:39 73 16 12/01/17 13:32 74 16 12/01/17 12:07 76 20 161/64 100 12/01/17 11:13 78 16 93 L 12/01/17 09:00 97.9 F 76 26 H 179/73 99 Intake and Output 12/01/17 12/01/17 12/01/17 06:59 14:59 22:59 Other: Voiding Method Diaper # Voids 1 # Bowel Movements 1 Weight 72 kg PHYSICAL EXAMINATION: GENERAL: The patient is alert and oriented x3, not in any acute distress. Well developed, well nourished. HEENT: Pupils are round and equally reacting to light. EOMI. No scleral icterus. No conjunctival pallor. Normocephalic, atraumatic. No pharyngeal erythema. No thyromegaly. CARDIOVASCULAR: S1 and S2 present. No murmurs, rubs, or gallops. PULMONARY: Patient does have bilateral crackles ABDOMEN: Soft, nontender, nondistended, normoactive bowel sounds. No palpable organomegaly. MUSCULOSKELETAL: No joint swelling or deformity. EXTREMITIES: No cyanosis, clubbing, or pedal edema. NEUROLOGICAL: Gross neurological examination did not reveal any focal deficits. SKIN: No rashes. Results CBC & Chem 7: 12/01/17 09:15 12/01/17 09:15 Labs: Abnormal Lab Results - Last 24 Hours (Table) 12/01/17 12/01/17 12/01/17 Range/Units 09:15 09:15 09:15 RBC 2.86 L (3.80-5.40) m/uL Hgb 8.0 L (11.4-16.0) gm/dL Hct 24.7 L (34.0-46.0) % PT 26.9 H (9.0-12.0) sec INR 3.0 H (<1.2) APTT 37.1 H (22.0-30.0) sec BUN 30 H (7-17) mg/dL Creatinine 5.62 H* (0.52-1.04) mg/dL Glucose 109 H (74-99) mg/dL POC Glucose (mg/dL) (75-99) mg/dL Calcium 8.2 L (8.4-10.2) mg/dL AST 10 L (14-36) U/L Total Protein 5.4 L (6.3-8.2) g/dL Albumin 2.9 L (3.5-5.0) g/dL 12/01/17 Range/Units 16:38 RBC (3.80-5.40) m/uL Hgb (11.4-16.0) gm/dL Hct (34.0-46.0) % PT (9.0-12.0) sec INR (<1.2) APTT (22.0-30.0) sec BUN (7-17) mg/dL Creatinine (0.52-1.04) mg/dL Glucose (74-99) mg/dL POC Glucose (mg/dL) 123 H (75-99) mg/dL Calcium (8.4-10.2) mg/dL AST (14-36) U/L Total Protein (6.3-8.2) g/dL Albumin (3.5-5.0) g/dL Thrombosis Risk Factor Assmnt - Choose All That Apply Any of the Below Risk Factors Present?: Yes Each Factor Represents 1 point: Abnormal pulmonary function (COPD), Heart failure (<1month), Obesity (BMI >25) Each Risk Factor Represents 3 Points: Age 75 years or older Thrombosis Risk Factor Assessment Total Risk Factor Score: 6 Thrombosis Risk Factor Assessment Level: High Risk Assessment and Plan Plan: -Hemoptysis: Probably secondary to elevated INR and coughing secondary to pulmonary edema. Coumadin will be held today aspirin will be held today can be resumed tomorrow patient's INR is around 3 -Pulmonary edema: Secondary to chronic diastolic dysfunction with acute exacerbation along with the renal dysfunction nephrology was consulted patient may receive hemodialysis today patient will be started on 80 mg of IV Lasix twice a day and the patient's present creatinine is around 5. Patient does urinate at home. -End-stage renal disease, hemodialysis dependent -metabolic bone disease patient will be resumed on phosphate binders -Hypertension next and have an chronic atrial flutter ablation presently rate controlled -Type 2 diabetes mellitus patient is on sliding scale insulin which will be continued -hyperlipidemia -Diabetic nephropathy -Chronic and generalized deconditioning Hyponatremia chronic kidney disease patient is on iron supplementation and will be continued along with the erythropoietin
[2017-12-01] MEDS ORDERED: BUDESONIDE 1 MG/2 ML NEBU INHALATION SCH (20:00)
[2017-12-01] MEDS: BUDESONIDE 1 MG/2 ML NEBU INHALATION SCH (20:11)
[2017-12-01 20:48] LABS: Glucose,Whole Blood 104 mg/dL (75-99)
[2017-12-01] MEDS ORDERED: FUROSEMIDE 40 MG TAB PO SCH (21:00)
[2017-12-01] MEDS ORDERED: FUROSEMIDE 10 MG/ML 10 ML VIAL IV SCH (21:00)
[2017-12-01] MEDS ORDERED: FUROSEMIDE 10 MG/ML 4 ML VIAL IV SCH (21:00)
[2017-12-01] MEDS ORDERED: IPRATROPIUM-ALBUTEROL 3 ML NEB INHALATION PRN (21:19)
[2017-12-01] MEDS: INSULIN ASPART 100 UNIT/ML 1 ML 10 ML VIAL SQ SCH (22:22)
[2017-12-01] MEDS: ATORVASTATIN 20 MG TAB PO SCH (22:26)
[2017-12-01] MEDS: levETIRAcetam 500 MG TAB PO SCH (22:26)
[2017-12-02] MEDS: hydrALAZINE HCL 25 MG TAB PO SCH ×5 (00:02→23:30)
[2017-12-02 06:10] LABS: Glucose,Whole Blood 96 mg/dL (75-99)
[2017-12-02 06:19] LABS: HCT 26.7 % (34.0-46.0); HGB 8.2 gm/dL (11.4-16.0); Hypochromasia Moderate; MCH 27.5 pg (25.0-35.0); MCHC 30.8 g/dL (31.0-37.0); MCV 89.3 fL (80.0-100.0); Mean Platelet Volume 8.1; Platelet Count 338 k/uL (150-450); Poikilocytosis Slight; RBC 2.99 m/uL (3.80-5.40); RDW 15.3 % (11.5-15.5); WBC 8.1 k/uL (3.8-10.6)
[2017-12-02 06:27] LABS: INR 2.5 (<1.2); Prothrombin Time 22.6 sec (9.0-12.0)
[2017-12-02 06:40] LABS: Potassium 4.4 mmol/L (3.5-5.1)
[2017-12-02] MEDS: INSULIN ASPART 100 UNIT/ML 1 ML 10 ML VIAL SQ SCH ×4 (06:41→21:03)
[2017-12-02] MEDS: PANTOPRAZOLE 40 MG TABLET PO SCH (06:42)
[2017-12-02] MEDS: SEVELAMER 800 MG TAB PO SCH ×3 (06:42→17:28)
[2017-12-02] MEDS: IPRATROPIUM-ALBUTEROL 3 ML NEB INHALATION SCH ×4 (08:45→19:55)
[2017-12-02] MEDS: BUDESONIDE 1 MG/2 ML NEBU INHALATION SCH ×2 (08:46→19:54)
[2017-12-02] MEDS ORDERED: DARBEPOETIN ALFA 40 MCG/0.4 ML SYRINGE SQ SCH (09:00)
--- NOTE | 2017-12-02 09:14 | P.NPCON ---
History of Present Illness - Reason for Consult end stage renal disease - History of Present Illness Reason for consultation: End-stage renal disease History of present illness: Patient is a 82-year-old female seen in consultation for end-stage renal disease. She is maintained on hemodialysis on a Saturday schedule. Right chest permacath. Patient had developed cellulitis of her AV graft in the past and had undergone multiple revisions. She does not want any further interventions and only wants to use permacath for dialysis. Patient presented to the hospital due to intractable nausea and vomiting overnight and was also noted to have dark emesis concerning for hematemesis. She was noted to have pulmonary edema and chest x-ray and underwent urgent hemodialysis yesterday. She still requiring high flow oxygen. She is quite weak and lethargic and is not able to provide much history. She does state that she has not had any emesis while in the hospital. Hemodynamically she stable. Blood pressures are actually on the higher side. Her INR was elevated at 3 and is down to 2.5. She is maintained on Coumadin for atrial fibrillation. She has history of diastolic CHF. Vital signs are stable. General: The patient appeared well nourished and normally developed. HEENT: Head exam is unremarkable. Neck is without jugular venous distension. LUNGS: Breath sounds decreased. Rhonchi at bases. HEART: Rate and Rhythm are regular. First and second heart sounds normal. No murmurs, rubs or gallops. ABDOMEN: Abdominal exam reveals normal bowel sounds. Non-tender and non- distended. No evidence of peritonitis. EXTREMITITES: No clubbing, cyanosis, or edema. Past Medical History Past Medical History: COPD, Diabetes Mellitus, Hyperlipidemia, Hypertension, Osteoarthritis (OA), Renal Disease, Vascular Disorder Additional Past Medical History / Comment(s): sat/sat/sat hemodialysis History of Any Multi-Drug Resistant Organisms: ESBL Date of last positivie culture/infection: 11/15/17 MDRO Source:: ESBL URINE E.COLI Past Surgical History: No Surgical Hx Reported Additional Past Surgical History / Comment(s): Ovine cyst removal cataracts carpal tunnel surgery left side. left AV fistula Past Anesthesia/Blood Transfusion Reactions: No Reported Reaction Past Psychological History: No Psychological Hx Reported Smoking Status: Former smoker Past Alcohol Use History: None Reported Past Drug Use History: None Reported - Past Family History Sister(s) Family Medical History: Diabetes Mellitus, Hyperlipidemia, Hypertension Daughter(s) Family Medical History: Asthma, COPD Additional Family Medical History / Comment(s): Lupus Medications and Allergies Home Medications Medication Instructions Recorded Confirmed Type Acetaminophen [Tylenol] 650 mg PO Q6H PRN 10/16/15 12/01/17 History INSULIN LISPRO (humaLOG) [humaLOG] See Protocol SQ HS PRN 10/16/15 12/01/17 History Ipratropium-Albuterol Nebulize 3 ml INHALATION RT-Q6H 10/16/15 12/01/17 History [Duoneb 0.5 mg-3 mg/3 ml Soln] Nitroglycerin Sl Tabs [Nitrostat] 0.4 mg SUBLINGUAL Q5M PRN 10/16/15 12/01/17 History Omeprazole [Omeprazole] 20 mg PO DAILY 10/16/15 12/01/17 History Ondansetron [Zofran] 4 mg PO Q8HR PRN 10/16/15 12/01/17 History Sevelamer [Renvela] 800 mg PO AC-TID 10/16/15 12/01/17 History Aspirin 81 mg PO DAILY 12/01/17 12/01/17 History Atorvastatin [Lipitor] 20 mg PO HS 12/01/17 12/01/17 History Budesonide [Pulmicort Flexhaler] 2 puff INHALATION RT-BID 12/01/17 12/01/17 History Ferrous Sulfate [Feosol] 325 mg PO DAILY 12/01/17 12/01/17 History INSULIN LISPRO (humaLOG) [humaLOG] See Protocol SQ AC-TID PRN 12/01/17 12/01/17 History Lisinopril [Zestril] 20 mg PO DAILY 12/01/17 12/01/17 History Loratadine [Claritin] 10 mg PO DAILY 12/01/17 12/01/17 History Sertraline [Zoloft] 25 mg PO DAILY 12/01/17 12/01/17 History Warfarin Sodium [Coumadin] 4 mg PO WETH 12/01/17 12/01/17 History Warfarin [Coumadin] 2.5 mg PO SUMOTUFRSA 12/01/17 12/01/17 History hydrALAZINE HCL [Apresoline] 25 mg PO Q8HR 12/01/17 12/01/17 History levETIRAcetam 1,000 mg PO Q12HR 12/01/17 12/01/17 History levETIRAcetam [Keppra] 500 mg PO MOWEFR 12/01/17 12/01/17 History Allergies Allergy/AdvReac Type Severity Reaction Status Date / Time codeine Allergy Rash/Hives Verified 10/16/15 11:01 metoprolol Allergy Unknown Verified 10/16/15 11:12 Penicillins Allergy Anaphylaxis Verified 10/16/15 11:01 pneumococcal vaccine Allergy Unknown Verified 12/01/17 14:01 Tetanus Vaccines and Toxoid Allergy Rash/Hives Verified 10/16/15 11:01 [Tetanus Vaccines & Toxoid] Physical Exam Vitals: Vital Signs Temp Pulse Pulse Resp BP BP Pulse Ox 12/02/17 09:00 72 16 12/02/17 08:46 71 16 12/02/17 04:00 97.1 F L 83 16 181/81 90 L 12/02/17 00:00 97.4 F L 82 18 169/79 93 L 12/01/17 20:31 70 12/01/17 20:18 96 12/01/17 20:11 72 12/01/17 20:00 96.8 F L 79 18 122/53 96 12/01/17 14:11 97.2 F L 75 18 189/74 98 12/01/17 14:00 98.1 F 88 17 164/72 97 12/01/17 13:39 73 16 12/01/17 13:32 74 16 12/01/17 12:07 76 20 161/64 100 12/01/17 11:13 78 16 93 L Intake and Output 12/01/17 12/02/17 12/02/17 22:59 06:59 14:59 Intake Total 100 Output Total 1999 -1900 Intake: Oral 100 Output: Other 1999 Other: Voiding Method Diaper Diaper # Voids 1 # Bowel Movements 1 Weight 72.5 kg Results - Lab Results Most recent lab results Calcium 9.0 mg/dL (8.4-10.2) 12/02/17 06:00 Phosphorus 2.1 mg/dL (2.5-4.5) L 12/01/17 09:15 Magnesium 2.2 mg/dL (1.6-2.3) 12/01/17 09:15 12/02/17 06:00 12/02/17 06:00 Assessment and Plan Plan: Assessment: #1. End-stage renal disease maintained on hemodialysis on a Saturday schedule via right chest permacath. Patient had developed cellulitis of her graft and had undergone multiple revisions. She has been refusing any further interventions and only wants to use permacath for dialysis. #2. Questionable hematemesis. This is likely related to elevated INR as she is on Coumadin. Seems to have resolved. Hemoglobin is stable. #3. Volume overload. #4. Diastolic CHF. #5. Anemia of chronic kidney disease. Rule out iron deficiency. #6. Hypophosphatemia related to poor nutritional status. #7. Hypertension with chronic kidney disease. Partially volume sensitive. Plan: Hemodialysis today with goal 3-4 L ultrafiltration. Repeat phosphorus level. Check iron studies. Add Aranesp. Continue to monitor hemoglobin closely. Expect improvement in oxygenation post dialysis. Thank you for the consultation. I will continue to follow the patient with you during her hospital stay.
[2017-12-02] MEDS: levETIRAcetam 500 MG TAB PO SCH ×2 (09:46→20:58)
[2017-12-02] MEDS: FUROSEMIDE 40 MG TAB PO SCH ×2 (09:49→15:48)
[2017-12-02 11:53] LABS: Glucose,Whole Blood 100 mg/dL (75-99)
[2017-12-02] MEDS ORDERED: HEPARIN SODIUM,PORCINE 5,000 UNIT/ML 1 ML VIAL ONE (12:00)
[2017-12-02] MEDS ORDERED: levETIRAcetam 500 MG TAB PO SCH (12:00)
[2017-12-02] MEDS: FERROUS SULFATE 325 MG TAB PO SCH (12:37)
[2017-12-02 14:46] VITALS: BMI 30.2
[2017-12-02] MEDS: POTASSIUM CHLORIDE ER 20 MEQ TAB.ER PO SCH (15:45)
[2017-12-02] MEDS: SERTRALINE 25 MG TAB PO SCH (15:45)
[2017-12-02] MEDS: ISOSORBIDE MONONITRATE ER 30 MG TAB.ER.24H PO SCH (15:46)
[2017-12-02] MEDS: ASPIRIN 81 MG PO SCH (15:48)
[2017-12-02 16:08] LABS: Hemoglobin A1C 5.1 % (4.0-6.0)
[2017-12-02 16:30] LABS: Glucose,Whole Blood 141 mg/dL (75-99)
--- NOTE | 2017-12-02 16:52 | P.PN ---
Subjective 82-year-old admitted secondary to hypoxemia pulmonary edema secondary to end- stage renal disease and chronic diastolic dysfunction with acute exacerbation patient underwent hemodialysis yesterday. Will undergo hemodialysis today is pretty status is expected to improve after that. Her PICC line came out I'm unsure why she is receiving antibiotics we'll check from longterm why she is receiving antibiotics if at all any Constitutional: Denied any fatigue denied any fever. Cardio vascular: denied any chest pain, palpitations Gastrointestinal denied any nausea vomiting Pulmonary: Denied any shortness of breath cough Neurologic denied any new focal deficits Objective - Vital Signs Vital signs: Vital Signs Temp 96.7 F L 12/02/17 15:32 Pulse 72 12/02/17 15:53 Resp 16 12/02/17 15:53 BP 188/77 12/02/17 15:32 Pulse Ox 92 L 12/02/17 15:32 Intake & Output 12/01/17 12/02/17 12/02/17 18:59 06:59 18:59 Intake Total 100 240 Output Total 1999 Balance -1900 240 Weight 72 kg 72.5 kg 72.5 kg Intake: Oral 100 240 Output: Other 1999 Other: Voiding Method Diaper Diaper Diaper # Voids 1 # Bowel Movements 1 - Exam PHYSICAL EXAMINATION: GENERAL: The patient is alert and oriented x3, not in any acute distress. Well developed, well nourished. HEENT: Pupils are round and equally reacting to light. EOMI. No scleral icterus. No conjunctival pallor. Normocephalic, atraumatic. No pharyngeal erythema. No thyromegaly. CARDIOVASCULAR: S1 and S2 present. No murmurs, rubs, or gallops. PULMONARY: Patient does have bilateral crackles ABDOMEN: Soft, nontender, nondistended, normoactive bowel sounds. No palpable organomegaly. MUSCULOSKELETAL: No joint swelling or deformity. EXTREMITIES: No cyanosis, clubbing, or pedal edema. NEUROLOGICAL: Gross neurological examination did not reveal any focal deficits. SKIN: No rashes. - Labs CBC & Chem 7: 12/02/17 06:00 12/02/17 06:00 Labs: Abnormal Lab Results - Last 24 Hours (Table) 12/01/17 12/01/17 12/01/17 Range/Units 09:15 16:38 20:44 RBC (3.80-5.40) m/uL Hgb (11.4-16.0) gm/dL Hct (34.0-46.0) % MCHC (31.0-37.0) g/dL PT (9.0-12.0) sec INR (<1.2) BUN (7-17) mg/dL Creatinine (0.52-1.04) mg/dL POC Glucose (mg/dL) 123 H 104 H (75-99) mg/dL Phosphorus 2.1 L (2.5-4.5) mg/dL 12/02/17 12/02/17 12/02/17 Range/Units 06:00 06:00 06:00 RBC 2.99 L (3.80-5.40) m/uL Hgb 8.2 L (11.4-16.0) gm/dL Hct 26.7 L (34.0-46.0) % MCHC 30.8 L (31.0-37.0) g/dL PT 22.6 H (9.0-12.0) sec INR 2.5 H (<1.2) BUN 19 H (7-17) mg/dL Creatinine 4.10 H (0.52-1.04) mg/dL POC Glucose (mg/dL) (75-99) mg/dL Phosphorus (2.5-4.5) mg/dL 12/02/17 12/02/17 12/02/17 Range/Units 06:00 11:44 16:10 RBC (3.80-5.40) m/uL Hgb (11.4-16.0) gm/dL Hct (34.0-46.0) % MCHC (31.0-37.0) g/dL PT (9.0-12.0) sec INR (<1.2) BUN (7-17) mg/dL Creatinine (0.52-1.04) mg/dL POC Glucose (mg/dL) 100 H 141 H (75-99) mg/dL Phosphorus 2.3 L (2.5-4.5) mg/dL Microbiology - Last 24 Hours (Table) 12/01/17 09:15 Blood Culture - Preliminary Blood No Growth after 24 hours Assessment and Plan Plan: -Hemoptysis: Probably secondary to elevated INR and coughing secondary to pulmonary edema. Hemoptysis resolved -Pulmonary edema: Secondary to chronic diastolic dysfunction with acute exacerbation along with the renal dysfunction nephrology was consulted patient may receive hemodialysis today patient will be started on 80 mg of IV Lasix twice a day and the patient's present creatinine is around 5. Patient does urinate at home. Her respiratory status is expected to improve after hemodialysis today -End-stage renal disease, hemodialysis dependent -metabolic bone disease patient will be resumed on phosphate binders -Hypertension next and have an chronic atrial flutter ablation presently rate controlled -Type 2 diabetes mellitus patient is on sliding scale insulin which will be continued -hyperlipidemia -Diabetic nephropathy -Chronic and generalized deconditioning Anemia of chronic kidney disease patient is on iron supplementation and will be continued along with the erythropoietin
[2017-12-02] MEDS ORDERED: WARFARIN 2.5 MG TAB PO SCH (18:00)
[2017-12-02] MEDS ORDERED: WARFARIN 2 MG TAB PO SCH (18:00)
[2017-12-02] MEDS: ATORVASTATIN 20 MG TAB PO SCH (20:58)
[2017-12-02 21:04] LABS: Glucose,Whole Blood 128 mg/dL (75-99)
[2017-12-03 02:02] LABS: Hepatitis B Surface AB- Quant 11.4 mIU/mL
[2017-12-03] MEDS: METOPROLOL SUCCINATE (ER) 50 MG TAB.ER.24H PO SCH ×2 (02:54→08:20)
[2017-12-03] MEDS: ISOSORBIDE MONONITRATE ER 30 MG TAB.ER.24H PO SCH ×2 (02:54→08:22)
[2017-12-03] MEDS: amLODIPine 10 MG TAB PO SCH ×2 (02:54→08:22)
[2017-12-03] MEDS: LISINOPRIL 20 MG TAB PO SCH ×2 (02:54→08:22)
[2017-12-03 07:04] LABS: Glucose,Whole Blood 100 mg/dL (75-99)
[2017-12-03] MEDS: BUDESONIDE 1 MG/2 ML NEBU INHALATION SCH (07:32)
[2017-12-03] MEDS: IPRATROPIUM-ALBUTEROL 3 ML NEB INHALATION SCH ×3 (07:32→15:35)
[2017-12-03 07:34] LABS: HCT 24.7 % (34.0-46.0); HGB 7.7 gm/dL (11.4-16.0); Hypochromasia Marked; MCH 27.3 pg (25.0-35.0); MCHC 31.1 g/dL (31.0-37.0); MCV 87.6 fL (80.0-100.0); Mean Platelet Volume 8.5; Platelet Count 297 k/uL (150-450); Poikilocytosis Slight; RBC 2.82 m/uL (3.80-5.40); RDW 15.9 % (11.5-15.5); WBC 6.8 k/uL (3.8-10.6)
[2017-12-03 07:37] LABS: INR 2.2 (<1.2); Prothrombin Time 19.6 sec (9.0-12.0)
[2017-12-03 07:51] LABS: Calcium 8.6 mg/dL (8.4-10.2); Potassium 3.8 mmol/L (3.5-5.1)
[2017-12-03] MEDS: INSULIN ASPART 100 UNIT/ML 1 ML 10 ML VIAL SQ SCH ×2 (08:13→11:40)
[2017-12-03] MEDS: FUROSEMIDE 40 MG TAB PO SCH ×2 (08:20→15:22)
[2017-12-03] MEDS: FERROUS SULFATE 325 MG TAB PO SCH ×2 (08:21→11:36)
[2017-12-03] MEDS: SERTRALINE 25 MG TAB PO SCH (08:21)
[2017-12-03] MEDS: ASPIRIN 81 MG PO SCH (08:21)
[2017-12-03] MEDS: hydrALAZINE HCL 25 MG TAB PO SCH ×2 (08:21→15:22)
[2017-12-03] MEDS: PANTOPRAZOLE 40 MG TABLET PO SCH (08:22)
[2017-12-03] MEDS: SEVELAMER 800 MG TAB PO SCH ×2 (08:22→11:36)
[2017-12-03] MEDS: POTASSIUM CHLORIDE ER 20 MEQ TAB.ER PO SCH (08:22)
[2017-12-03] MEDS: levETIRAcetam 500 MG TAB PO SCH (08:23)
[2017-12-03 11:42] LABS: Glucose,Whole Blood 104 mg/dL (75-99)
--- NOTE | 2017-12-03 14:13 | P.DS ---
Providers Date of admission: 12/01/17 13:16 Attending physician: Twyla Zamudio Consults: 12/01/17 13:05 Consult Physician Stat Consulting Provider: Erna Johnson Consult Reason/Comments: Dialysis Do you want consulting provider notified?: Already Contacted Primary care physician: [facility] Course: 82-year-old admitted secondary to hypoxemia pulmonary edema secondary to end- stage renal disease and chronic diastolic dysfunction with acute exacerbation patient underwent hemodialysis yesterday. Will undergo hemodialysis today is pretty status is expected to improve after that. Her PICC line came out I'm unsure why she is receiving antibiotics we'll check from long-term why she is receiving antibiotics if at all any. 12/03/2017 Patient is clinically doing well respiratory status improved patient does use 3 days at the long-term and patient is presently on 3 L will be discharged back to long-term discussed with the nephrology patient will receive hemodialysis tomorrow. PHYSICAL EXAMINATION: GENERAL: The patient is alert and oriented x3, not in any acute distress. Well developed, well nourished. HEENT: Pupils are round and equally reacting to light. EOMI. No scleral icterus. No conjunctival pallor. Normocephalic, atraumatic. No pharyngeal erythema. No thyromegaly. CARDIOVASCULAR: S1 and S2 present. No murmurs, rubs, or gallops. PULMONARY: Patient does have bilateral crackles ABDOMEN: Soft, nontender, nondistended, normoactive bowel sounds. No palpable organomegaly. MUSCULOSKELETAL: No joint swelling or deformity. EXTREMITIES: No cyanosis, clubbing, or pedal edema. NEUROLOGICAL: Gross neurological examination did not reveal any focal deficits. SKIN: No rashes. Assessment and Plan Plan: -Hemoptysis: Probably secondary to elevated INR and coughing secondary to pulmonary edema. Hemoptysis resolved -Pulmonary edema: Secondary to chronic diastolic dysfunction with acute exacerbation along with the renal dysfunction patient will see hemodialysis tomorrow patient is presently fairly euvolemic -End-stage renal disease, hemodialysis dependent -metabolic bone disease patient will be resumed on phosphate binders -Hypertension next and have an chronic atrial flutter ablation presently rate controlled -Type 2 diabetes mellitus patient is on sliding scale insulin which will be continued -hyperlipidemia -Diabetic nephropathy -Chronic and generalized deconditioning Patient Condition at Discharge: Stable Plan - Discharge Summary Discharge Rx Participant: No New Discharge Prescriptions: New amLODIPine [Norvasc] 10 mg PO DAILY tab Metoprolol Succinate (ER) [Toprol XL] 50 mg PO DAILY #0 tab.er.24h Continue Ondansetron [Zofran] 4 mg PO Q8HR PRN PRN Reason: Nausea Nitroglycerin Sl Tabs [Nitrostat] 0.4 mg SUBLINGUAL Q5M PRN PRN Reason: Chest Pain Sevelamer [Renvela] 800 mg PO AC-TID Omeprazole 20 mg PO DAILY Ipratropium-Albuterol Nebulize [Duoneb 0.5 mg-3 mg/3 ml Soln] 3 ml INHALATION RT-Q6H INSULIN LISPRO (humaLOG) [humaLOG] See Protocol SQ HS PRN PRN Reason: Blood Sugar - High Acetaminophen [Tylenol] 650 mg PO Q6H PRN PRN Reason: Pain hydrALAZINE HCL [Apresoline] 25 mg PO Q8HR INSULIN LISPRO (humaLOG) [humaLOG] See Protocol SQ AC-TID PRN PRN Reason: Blood Sugar - High levETIRAcetam 1,000 mg PO Q12HR Budesonide [Pulmicort Flexhaler] 2 puff INHALATION RT-BID Sertraline [Zoloft] 25 mg PO DAILY Loratadine [Claritin] 10 mg PO DAILY levETIRAcetam [Keppra] 500 mg PO MOWEFR Lisinopril [Zestril] 20 mg PO DAILY Atorvastatin [Lipitor] 20 mg PO HS Ferrous Sulfate [Iron (65 MG Elemental)] 325 mg PO DAILY Warfarin [Coumadin] 2.5 mg PO SUMOTUFRSA Warfarin Sodium [Coumadin] 4 mg PO WETH Aspirin 81 mg PO DAILY Discharge Medication List Acetaminophen [Tylenol] 650 mg PO Q6H PRN 10/16/15 [History] INSULIN LISPRO (humaLOG) [humaLOG] See Protocol SQ HS PRN 10/16/15 [History] Ipratropium-Albuterol Nebulize [Duoneb 0.5 mg-3 mg/3 ml Soln] 3 ml INHALATION RT -Q6H 10/16/15 [History] Nitroglycerin Sl Tabs [Nitrostat] 0.4 mg SUBLINGUAL Q5M PRN 10/16/15 [History] Omeprazole 20 mg PO DAILY 10/16/15 [History] Ondansetron [Zofran] 4 mg PO Q8HR PRN 10/16/15 [History] Sevelamer [Renvela] 800 mg PO AC-TID 10/16/15 [History] Aspirin 81 mg PO DAILY 12/01/17 [History] Atorvastatin [Lipitor] 20 mg PO HS 12/01/17 [History] Budesonide [Pulmicort Flexhaler] 2 puff INHALATION RT-BID 12/01/17 [History] Ferrous Sulfate [Iron (65 MG Elemental)] 325 mg PO DAILY 12/01/17 [History] INSULIN LISPRO (humaLOG) [humaLOG] See Protocol SQ AC-TID PRN 12/01/17 [History] Lisinopril [Zestril] 20 mg PO DAILY 12/01/17 [History] Loratadine [Claritin] 10 mg PO DAILY 12/01/17 [History] Sertraline [Zoloft] 25 mg PO DAILY 12/01/17 [History] Warfarin Sodium [Coumadin] 4 mg PO WETH 12/01/17 [History] Warfarin [Coumadin] 2.5 mg PO SUMOTUFRSA 12/01/17 [History] hydrALAZINE HCL [Apresoline] 25 mg PO Q8HR 12/01/17 [History] levETIRAcetam 1,000 mg PO Q12HR 12/01/17 [History] levETIRAcetam [Keppra] 500 mg PO MOWEFR 12/01/17 [History] Metoprolol Succinate (ER) [Toprol XL] 50 mg PO DAILY #0 tab.er.24h 12/03/17 [Rx] amLODIPine [Norvasc] 10 mg PO DAILY tab 12/03/17 [Rx] Follow up Appointment(s)/Referral(s): Merritt Treviño DO [Primary Care Provider] - 1-2 days Discharge Disposition: TRANSFER TO SNF/ECF
[2017-12-03 15:00] VITALS: BP 152/69; RESP 16; TEMP 98.1
[2017-12-03 15:49] VITALS: PULSE 80
--- NOTE | 2017-12-03 20:11 | PN ---
PROGRESS NOTE Patient is seen for followup for end-stage renal disease. She was admitted to the hospital with shortness of breath. Patient was fluid overloaded. She had hemodialysis yesterday with UF of about 3.5 L. Patient is feeling much better. There are plans for possible discharge today. EXAMINATION: This morning, blood pressure was 159/65, heart rate 83 per minute. She is afebrile. HEART: S1, S2. LUNGS: Bilateral breath sounds are heard. Decreased breath sounds at bases. Abdomen is soft, nontender. Lower extremities show no significant edema. LABS: Reviewed. Hemoglobin 7.7, potassium 3.8 mEq/L. ASSESSMENT: 1. End-stage renal disease, on hemodialysis on a Saturday, Saturday, Saturday schedule. The patient will be dialyzed tomorrow. 2. Fluid overload, currently improved. 3. Anemia of chronic disease. Hemoglobin is slightly lower. No active bleeding noted. She is maintained on Aranesp. PLAN: The patient is stable for discharge. Will plan for hemodialysis in a.m. Will follow up on the hemoglobin as outpatient and adjust the dose of Mircera. Her dry weight will be changed and we will plan for increase ultrafiltration with hemodialysis. MMODL / IJN: [id number] /
[2017-12-04] MEDS ORDERED: NON-FORMULARY DRUG (Warfarin Sodium [Coumadin] 4 MG) PO SCH (15:30)
== END 2017-12-03 16:15 | DRG 291 ==
LOC: EC 08:55 → 6SEL 13:16 → 3SUR 12-02 23:14
PROVIDERS: ADMIT Internal Medicine; ATTEND Internal Medicine
PROC: 5A1D70Z Performance of Urinary Filtration, Intermittent, Less than 6 Hours Per Day (ICD-10-PCS; principal; 2017-12-02)
DX: I13.2 Hypertensive heart and chronic kidney disease with heart failure and with stage 5 chronic kidney disease, or end stage renal disease (principal); I50.33 Acute on chronic diastolic (congestive) heart failure; N18.6 End stage renal disease; E87.1 Hypo-osmolality and hyponatremia; D63.1 Anemia in chronic kidney disease; E11.21 Type 2 diabetes mellitus with diabetic nephropathy; E11.22 Type 2 diabetes mellitus with diabetic chronic kidney disease; E78.5 Hyperlipidemia, unspecified; E83.39 Other disorders of phosphorus metabolism; E88.89 Other specified metabolic disorders; I48.91 Unspecified atrial fibrillation; J44.9 Chronic obstructive pulmonary disease, unspecified; R09.02 Hypoxemia; R79.1 Abnormal coagulation profile; Z79.01 Long term (current) use of anticoagulants; Z79.82 Long term (current) use of aspirin; Z79.899 Other long term (current) drug therapy; Z82.49 Family history of ischemic heart disease and other diseases of the circulatory system; Z82.5 Family history of asthma and other chronic lower respiratory diseases; Z83.3 Family history of diabetes mellitus; Z87.891 Personal history of nicotine dependence; Z99.2 Dependence on renal dialysis; Z98.42 Cataract extraction status, left eye; Z98.41 Cataract extraction status, right eye; Z96.1 Presence of intraocular lens; Z79.4 Long term (current) use of insulin; Z88.5 Allergy status to narcotic agent; Z88.0 Allergy status to penicillin; Z88.7 Allergy status to serum and vaccine; Z88.8 Allergy status to other drugs, medicaments and biological substances
CPT/HCPCS: 36415; 71046; 80048; 80053; 82550; 82553; 82728; 83036; 83540; 83550; 83735; 83880; 84100; 85025; 85027; 85610; 85730; 86704; 86706; 87040; 87340; 90935; 93005; 94640; 94760; 99291